=== PATIENT | male | born 1970 | race Caucasian/White ===

== ENCOUNTER 2018-04-29 02:06 | Inpatient (IN) | payer MEDICAID, OTHER ==
[~2018-04-29] VITALS: Ht 185.4 cm; Wt 89.0 kg
[2018-04-29] MEDS ORDERED: ONDANSETRON 2MG/ML, 2ML ONE (02:15)
[2018-04-29] MEDS ORDERED: SODIUM CHLORIDE 0.9% 1,000ML IVBOLUS ONE (02:30)
[2018-04-29] MEDS ORDERED: LIDOCAINE 1%, 10ML INFIL ONE (02:30)
[2018-04-29] MEDS ORDERED: DIPH,PERTUSS(ACELL),TET VAC/PF 0.5 ML IM-VACC ONE ×2 (02:30→07:59)
--- NOTE | 2018-04-29 02:35 | NUR ---
ASSUMED CARE FOR THIS PT. PT POSITIONED FOR COMFORT NAD IVF RUNNING VIA A WARMER ORDERED PT WITH BEAR HUGGER IN PLACE AND WARM BLANKETS GIVEN TO PT.
--- NOTE | 2018-04-29 02:35 | NUR ---
Pt bib ambulance with lac to L wrist--self inflicted. Bleeding controlled TEACHING PASTOR. No active bleeding when dressing removed. CMS intact to L hand. Per EMS, approx 400-500 cc blood noted on scene. Pt also has lac to bottom of chin. States he is unsure how he got this. + ETOH as well. EMS could only get bp 100/palp on scene. Unable to obtain IV TEACHING PASTOR. Pt received 4 mg Zofran PO TEACHING PASTOR. Just before arrival, bp 112/77 per EMS. Pt hypotensive upon arrival to ER. Pt is A&O. C/O severe jaw pain with mild swelling noted to L jaw. IV access obtained and fluid bolus started via fluid warmer. Pt rectal temp 96.3. Bear-hugger blanket in place as well. Report to Familia CASEY.
[2018-04-29] MEDS ORDERED: ONDANSETRON 2MG/ML, 2ML IVPush ONE (03:00)
[2018-04-29 03:01] LABS: MEAN CORPUSCULAR HEMOGLOBIN 31.1 pg (27.5-34.5); MEAN CORPUSCULAR HGB CONC 33.9 g/dL (33.2-36.2); MEAN CORPUSCULAR VOLUME 91.6 fL (81-97); MEAN PLATELET VOLUME 8.6 fL (7.4-10.4); PLATELET COUNT 442 x10^3/uL (130-400); RED BLOOD COUNT 4.96 x10^6/uL (4.38-5.82); RED CELL DISTRIBUTION WIDTH 13.4 % (9.4-14.8)
[2018-04-29 03:02] LABS: ACETAMINOPHEN 2 mcg/mL (10-30); ALANINE AMINOTRANSFERASE 18 U/L (12-78); ALBUMIN 3.2 g/dL (3.4-5.0); ANION GAP 18 mmol/L (5-15); CALCIUM 7.5 mg/dL (8.5-10.1); CHLORIDE 109 mmol/L (98-107); CREATININE 2.53 mg/dL (0.7-1.3)
[2018-04-29 03:04] LABS: ALKALINE PHOSPHATASE 65 U/L (45-117); BILIRUBIN,TOTAL 0.3 mg/dL (0.2-1.0); SALICYLATE LEVEL < 1.7 mg/dL (2.8-20.0); TOTAL PROTEIN 5.4 g/dL (6.4-8.2)
[2018-04-29 03:16] LABS: BASOPHILS # (AUTO) 0.05 x10^3/uL (0-0.1); BASOPHILS % (AUTO) 0 % (0-1); EOSINOPHILS # (AUTO) 0.02 x10^3/uL (0-0.4); EOSINOPHILS % (AUTO) 0 % (1-7); LYMPHOCYTES % (AUTO) 7 % (22-44); MD SCAN; MONOCYTES # (AUTO) 0.33 x10^3/uL (0.2-0.8); MONOCYTES % (AUTO) 1 % (2-9); NEUTROPHILS # (AUTO) 22.56 x10^3/uL (1.8-6.8); NEUTROPHILS % (AUTO) 91 % (42-75)
--- NOTE | 2018-04-29 03:30 | NUR ---
IFV RUNNING ORDERED AND AWAITING LAB AND CT RESULTS. PT REMAINS A/O X [address] IN [address]. PT WITH SITTER AT BEDSIDE AND IN NO DISTRESS AT THIS TIME.
--- NOTE | 2018-04-29 04:08 | NUR ---
PT TO CT SCAN.
[2018-04-29] MEDS ORDERED: VANCOMYCIN 1,700 MG in SODIUM CHLORIDE 0.9% 250 ML IV ONE (04:30)
[2018-04-29] MEDS ORDERED: VANCOMYCIN PER PHARMACY IV ONE (04:30)
[2018-04-29] MEDS ORDERED: PIPERACILLIN/TAZO/PMX 3.375GM 50 ML IVPB ONE (04:30)
[2018-04-29] MEDS ORDERED: PIPERACILLIN/TAZO/PMX 3.375GM 50 ML ONE (04:32)
--- NOTE | 2018-04-29 04:39 | NUR ---
ASSISTED IN PT CARE. ANTIBIOTICS INFUSING VIA PUMP AFTER BLOOD CULTURES X2 DRAWN.
--- NOTE | 2018-04-29 04:48 | NUR ---
LAC TO LEFT WRIST STARTED BLEEDING AND WAS RE DRESSED AND BLEEDING CONTROLED. SECOND IV WAS STARTED AND IV MEDS RUNNING ORDERED.
[2018-04-29] MEDS ORDERED: LIDOCAINE-MPF 1%, 5ML ONE (05:03)
[2018-04-29] MEDS ORDERED: BACITRACIN ZINC OINT 500U/GM, 0.9 GM ONE (05:31)
--- NOTE | 2018-04-29 05:43 | NUR ---
BOTH WRIST AND CHIN LAC REPAIRED BY PA. PT MEDICATED FOR PAIN.
[2018-04-29] MEDS ORDERED: MAALOX/HYOSCYAMINE/LIDOCAINE 45 ML BTL PO ONE (06:00)
[2018-04-29] MEDS ORDERED: morphine SULFATE 10 MG/ML, 1ML IVPush ONE (06:00)
--- NOTE | 2018-04-29 06:12 | NUR ---
SITTER REMAINS AT BEDSIDE IVF CONTINUE.
[2018-04-29 06:31] LABS: TROPONIN I < 0.015 ng/mL (0.000-0.045)
[2018-04-29] MEDS ORDERED: SODIUM CHLORIDE 0.9% 1,000 ML IV SCH ×2 (07:00→13:00)
[2018-04-29] MEDS ORDERED: SODIUM CHLORIDE 0.9% 1,000 ML IV ONE (07:07)
[2018-04-29] MEDS ORDERED: MORPHINE SULFATE 4 MG/ML, 1ML ONE ×4 (07:59→17:25)
[2018-04-29] MEDS ORDERED: hydrALAzine 20 MG/ML, 1ML IVPush PRN (08:00)
[2018-04-29] MEDS ORDERED: ACETAMINOPHEN 325 MG TABLET PO PRN (08:00)
[2018-04-29] MEDS ORDERED: BISACODYL 10 MG SUPP PR PRN (08:00)
[2018-04-29] MEDS: morphine SULFATE 10 MG/ML, 1ML IVPush PRN ×5 (08:24→22:18)
[2018-04-29] MEDS ORDERED: PROCHLORPERAZINE 5 MG/ML, 2ML IV PRN (08:30)
[2018-04-29 08:36] LABS: INTERNATIONAL NORMALIZED RATIO 1.15 (0.93-1.1); PROTHROMBIN TIME 12.1 Seconds (9.6-11.5)
[2018-04-29] MEDS: SODIUM CHLORIDE 0.9% 1,000 ML IV SCH ×3 (08:58→23:00)
[2018-04-29] MEDS ORDERED: FAMOTIDINE 20 MG/2 ML IVPush SCH (09:00)
--- NOTE | 2018-04-29 09:03 | NUR ---
BED BATH TO REMOVE REMAINING DRIED BLOOD, COMPLETE BED CHANGE. PT TOLLERATED WELL, JAW BRA ICE PACKS APPLIED AND PT NOW APPEARS SLEEPING RIGHT LATERAL POSITION, RESP EVEN NON-LABORED. MONITORS IN PLACE, SITTER AT BEDSIDE.
[2018-04-29 09:05] LABS: HEMOGLOBIN A1C 5.1 % (4.2-6.3)
[2018-04-29] MEDS: POTASSIUM CHLORIDE 20 MEQ, MAGNESIUM SULFATE 1 GM, THIAMINE 200 MG, FOLIC ACID 1 MG, MV... IV SCH (09:53)
[2018-04-29] MEDS ORDERED: NICOTINE 7 MG/24 HR PATCH.TD24 ONE (09:57)
[2018-04-29] MEDS ORDERED: FAMOTIDINE 20 MG/2 ML ONE (09:58)
[2018-04-29] MEDS: NICOTINE 7 MG/24 HR PATCH.TD24 TD SCH (09:59)
[2018-04-29 11:25] VITALS: BP 110/73
[2018-04-29 11:53] VITALS: BP 101/67
[2018-04-29 11:54] LABS: AMPHETAMINE SCREEN, URINE Negative (Negative); BARBITURATE SCREEN, URINE Negative (Negative); BENZODIAZEPINE SCREEN, URINE Negative (Negative); CANNABINOID SCREEN, URINE Negative (Negative); COCAINE SCREEN, URINE Negative (Negative); METHADONE SCREEN, URINE Negative (Negative); OPIATE SCREEN, URINE Positive (Negative)
[2018-04-29 12:00] LABS: MICROSCOPIC AUTO
[2018-04-29] MEDS ORDERED: MORPHINE SULFATE 4 MG/ML, 1ML IVPush ONE (12:00)
[2018-04-29 12:03] LABS: CULTURE INDICATED? NO
[2018-04-29 14:00] VITALS: BP 117/77
[2018-04-29 17:29] VITALS: BP 117/77
[2018-04-29 20:00] VITALS: BP 123/81
[2018-04-30 02:00] VITALS: BP 119/83
[2018-04-30 02:28] LABS: ALANINE AMINOTRANSFERASE 13 U/L (12-78); ALBUMIN 2.6 g/dL (3.4-5.0); ANION GAP 6 mmol/L (5-15); BASOPHILS # (AUTO) 0.09 x10^3/uL (0-0.1); BASOPHILS % (AUTO) 1 % (0-1); CALCIUM 7.3 mg/dL (8.5-10.1); CHLORIDE 111 mmol/L (98-107); CREATININE 0.91 mg/dL (0.7-1.3); EOSINOPHILS # (AUTO) 0.11 x10^3/uL (0-0.4); EOSINOPHILS % (AUTO) 1 % (1-7); LYMPHOCYTES # (AUTO) 1.85 x10^3/uL (1-3.4); LYMPHOCYTES % (AUTO) 21 % (22-44); MD NO; MEAN CORPUSCULAR HEMOGLOBIN 31.1 pg (27.5-34.5); MEAN CORPUSCULAR HGB CONC 34.5 g/dL (33.2-36.2); MEAN CORPUSCULAR VOLUME 90.2 fL (81-97); MEAN PLATELET VOLUME 8.1 fL (7.4-10.4); MONOCYTES # (AUTO) 0.62 x10^3/uL (0.2-0.8); MONOCYTES % (AUTO) 7 % (2-9); NEUTROPHILS # (AUTO) 6.13 x10^3/uL (1.8-6.8); NEUTROPHILS % (AUTO) 70 % (42-75); PLATELET COUNT 219 x10^3/uL (130-400); RED CELL DISTRIBUTION WIDTH 13.3 % (9.4-14.8)
[2018-04-30 02:31] LABS: ALKALINE PHOSPHATASE 53 U/L (45-117); BILIRUBIN,TOTAL 0.4 mg/dL (0.2-1.0); TOTAL PROTEIN 4.4 g/dL (6.4-8.2)
[2018-04-30] MEDS: morphine SULFATE 10 MG/ML, 1ML IVPush PRN ×6 (04:05→20:07)
[2018-04-30] MEDS: SODIUM CHLORIDE 0.9% 1,000 ML IV SCH (05:00)
[2018-04-30 07:45] VITALS: BP_SYST 112; BP_SYST 151; BP_DIAS 52; BP_DIAS 76
[2018-04-30] MEDS ORDERED: FAMOTIDINE 20 MG/2 ML IVPush SCH (09:00)
[2018-04-30] MEDS: NEUTRA PHOS K 250 MG TABLET PO SCH ×2 (09:40→20:07)
[2018-04-30] MEDS: POTASSIUM CHLORIDE 20 MEQ, MAGNESIUM SULFATE 1 GM, THIAMINE 200 MG, FOLIC ACID 1 MG, MV... IV SCH (09:40)
[2018-04-30] MEDS: NICOTINE 7 MG/24 HR PATCH.TD24 TD SCH (09:41)
[2018-04-30 13:20] VITALS: BP 104/69
[2018-04-30] MEDS: FAMOTIDINE 20 MG TABLET PO SCH (20:07)
[2018-04-30 20:17] VITALS: BP 129/84
[2018-04-30] MEDS: OXYcodone 5 MG/5 ML ORAL.SOL UDC PO PRN (22:16)
[2018-05-01 00:04] VITALS: BP 116/72
[2018-05-01] MEDS: morphine SULFATE 10 MG/ML, 1ML IVPush PRN ×5 (01:02→23:05)
[2018-05-01 06:03] LABS: BASOPHILS # (AUTO) 0.07 x10^3/uL (0-0.1); BASOPHILS % (AUTO) 1 % (0-1); EOSINOPHILS # (AUTO) 0.12 x10^3/uL (0-0.4); EOSINOPHILS % (AUTO) 2 % (1-7); LYMPHOCYTES # (AUTO) 1.49 x10^3/uL (1-3.4); LYMPHOCYTES % (AUTO) 19 % (22-44); MD NO; MEAN CORPUSCULAR HEMOGLOBIN 31.3 pg (27.5-34.5); MEAN CORPUSCULAR HGB CONC 34.7 g/dL (33.2-36.2); MEAN CORPUSCULAR VOLUME 90.3 fL (81-97); MEAN PLATELET VOLUME 8.4 fL (7.4-10.4); MONOCYTES # (AUTO) 0.55 x10^3/uL (0.2-0.8); MONOCYTES % (AUTO) 7 % (2-9); NEUTROPHILS # (AUTO) 5.59 x10^3/uL (1.8-6.8); NEUTROPHILS % (AUTO) 72 % (42-75); PLATELET COUNT 212 x10^3/uL (130-400); RED BLOOD COUNT 2.69 x10^6/uL (4.38-5.82); RED CELL DISTRIBUTION WIDTH 13.2 % (9.4-14.8)
[2018-05-01 06:13] LABS: ANION GAP 5 mmol/L (5-15); CHLORIDE 108 mmol/L (98-107)
[2018-05-01 06:14] LABS: CREATININE 0.85 mg/dL (0.7-1.3)
[2018-05-01] MEDS ORDERED: BALANCED SALT OPHTH IRRIG SOLN 18ML ONE (07:19)
[2018-05-01] MEDS ORDERED: OXYMETAZOLINE NASAL SPRAY 0.05%, 15ML ONE (07:19)
[2018-05-01] MEDS ORDERED: LIDOCAINE 1%-EPI 1:100K, 30ML ONE (07:19)
[2018-05-01] MEDS ORDERED: FENTANYL PF 250 MCG/5ML ONE (07:20)
[2018-05-01] MEDS ORDERED: MIDAZOLAM 1 MG/ML, 2ML ONE (07:20)
[2018-05-01] MEDS ORDERED: ROCURONIUM 10MG/ML,5ML ONE (07:22)
[2018-05-01] MEDS ORDERED: PROPOFOL 10 MG/ML, 20ML ONE (07:22)
[2018-05-01] MEDS ORDERED: CLINDAMYCIN 150 MG/ML, 6ML ONE (07:34)
[2018-05-01] MEDS ORDERED: ONDANSETRON 2MG/ML, 2ML ONE (07:34)
[2018-05-01] MEDS ORDERED: DEXAMETHASONE 4 MG/ML, 1ML ONE (07:34)
[2018-05-01 08:00] VITALS: BP 131/88
[2018-05-01] MEDS: NICOTINE 7 MG/24 HR PATCH.TD24 TD SCH (08:00)
[2018-05-01] MEDS ORDERED: FENTANYL PF 100 MCG/2ML ONE (08:13)
[2018-05-01] MEDS ORDERED: HYDROmorphone 2 MG/ML, 1ML ONE (08:13)
[2018-05-01] MEDS ORDERED: SUGAMMADEX 200 MG/2 ML IVPush ONE (08:19)
[2018-05-01] MEDS ORDERED: hydrALAzine 20 MG/ML, 1ML IV PRN (08:30)
[2018-05-01] MEDS ORDERED: PROMETHAZINE 25 MG/ML, 1ML IV PRN (08:30)
[2018-05-01] MEDS ORDERED: MEPERIDINE/PF 25MG/0.5ML IVPush PRN (08:30)
[2018-05-01] MEDS: POTASSIUM CHLORIDE 20 MEQ, MAGNESIUM SULFATE 1 GM, THIAMINE 200 MG, FOLIC ACID 1 MG, MV... IV SCH (08:30)
[2018-05-01] MEDS ORDERED: LORazepam 2 MG/ML, 1ML IVPush PRN (08:30)
[2018-05-01] MEDS ORDERED: FENTANYL PF 100 MCG/2ML IV PRN (08:30)
[2018-05-01] MEDS ORDERED: HALOPERIDOL 5 MG/ML IV PRN (08:30)
[2018-05-01] MEDS ORDERED: OXYcodone 5 MG/5 ML ORAL.SOL UDC PO PRN (08:30)
[2018-05-01] MEDS ORDERED: HYDROmorphone 2 MG/ML, 1ML IVPush PRN (08:30)
[2018-05-01] MEDS ORDERED: OXYcodone 5 MG/5 ML ORAL.SOL UDC ONE (08:54)
[2018-05-01] MEDS: FAMOTIDINE 20 MG TABLET PO SCH ×2 (09:00→19:45)
[2018-05-01] MEDS: NEUTRA PHOS K 250 MG TABLET PO SCH ×2 (09:00→19:45)
[2018-05-01] MEDS: OXYcodone 5 MG/5 ML ORAL.SOL UDC PO PRN ×2 (12:04→21:27)
[2018-05-01] MEDS: SODIUM CHLORIDE 0.9% 1,000 ML IV SCH (12:06)
[2018-05-01 14:00] VITALS: BP 122/75
[2018-05-01 19:44] VITALS: BP 135/65
[2018-05-02] MEDS: SODIUM CHLORIDE 0.9% 1,000 ML IV SCH (01:15)
[2018-05-02 02:13] VITALS: BP 117/80
[2018-05-02] MEDS: morphine SULFATE 10 MG/ML, 1ML IVPush PRN ×4 (03:54→20:26)
[2018-05-02 06:01] LABS: BASOPHILS # (AUTO) 0.04 x10^3/uL (0-0.1); BASOPHILS % (AUTO) 0 % (0-1); EOSINOPHILS # (AUTO) 0.01 x10^3/uL (0-0.4); EOSINOPHILS % (AUTO) 0 % (1-7); LYMPHOCYTES # (AUTO) 1.07 x10^3/uL (1-3.4); LYMPHOCYTES % (AUTO) 8 % (22-44); MD NO; MEAN CORPUSCULAR HEMOGLOBIN 31.7 pg (27.5-34.5); MEAN CORPUSCULAR HGB CONC 34.8 g/dL (33.2-36.2); MEAN CORPUSCULAR VOLUME 91.1 fL (81-97); MEAN PLATELET VOLUME 8.6 fL (7.4-10.4); MONOCYTES % (AUTO) 6 % (2-9); NEUTROPHILS # (AUTO) 11.35 x10^3/uL (1.8-6.8); NEUTROPHILS % (AUTO) 86 % (42-75); PLATELET COUNT 236 x10^3/uL (130-400); RED BLOOD COUNT 2.81 x10^6/uL (4.38-5.82); RED CELL DISTRIBUTION WIDTH 13.7 % (9.4-14.8)
[2018-05-02 06:07] LABS: ANION GAP 6 mmol/L (5-15); CALCIUM 8.2 mg/dL (8.5-10.1); CHLORIDE 105 mmol/L (98-107); CREATININE 0.85 mg/dL (0.7-1.3)
[2018-05-02 07:02] VITALS: BP 105/75
[2018-05-02] MEDS: NICOTINE 7 MG/24 HR PATCH.TD24 TD SCH (09:16)
[2018-05-02] MEDS: NEUTRA PHOS K 250 MG TABLET PO SCH (09:16)
[2018-05-02] MEDS: FAMOTIDINE 20 MG TABLET PO SCH ×2 (09:16→20:26)
[2018-05-02] MEDS: OXYcodone 5 MG/5 ML ORAL.SOL UDC PO PRN ×3 (11:23→23:38)
[2018-05-02 12:22] VITALS: BP 100/68
[2018-05-02] MEDS: ENOXAPARIN 40 MG/0.4 ML SQ SCH (14:30)
[2018-05-02 20:00] VITALS: BP 124/76
[2018-05-03 02:00] VITALS: BP 125/77
[2018-05-03] MEDS: morphine SULFATE 10 MG/ML, 1ML IVPush PRN ×4 (02:52→20:30)
[2018-05-03] MEDS: OXYcodone 5 MG/5 ML ORAL.SOL UDC PO PRN ×4 (05:59→23:17)
[2018-05-03 06:35] VITALS: BP 129/77
[2018-05-03] MEDS: FAMOTIDINE 20 MG TABLET PO SCH ×2 (08:43→20:30)
[2018-05-03] MEDS: NICOTINE 7 MG/24 HR PATCH.TD24 TD SCH (08:45)
[2018-05-03 12:22] VITALS: BP 114/75
[2018-05-03] MEDS: ENOXAPARIN 40 MG/0.4 ML SQ SCH (14:30)
[2018-05-03] MEDS: CIPROFLOXACIN/HYDROCORTISONE EAR SUSP 0.2-1%, 10ML LEFT EAR SCH ×2 (15:49→20:30)
[2018-05-03 20:00] VITALS: BP 110/76
[2018-05-03 20:28] VITALS: BP 114/63
[2018-05-03 23:15] VITALS: BP 114/75
[2018-05-04 02:00] VITALS: BP 108/70
[2018-05-04] MEDS: CIPROFLOXACIN/HYDROCORTISONE EAR SUSP 0.2-1%, 10ML LEFT EAR SCH ×4 (02:27→20:46)
[2018-05-04] MEDS: morphine SULFATE 10 MG/ML, 1ML IVPush PRN ×3 (03:24→18:40)
[2018-05-04 06:39] VITALS: BP 100/63
[2018-05-04] MEDS: NICOTINE 7 MG/24 HR PATCH.TD24 TD SCH (08:12)
[2018-05-04] MEDS: FAMOTIDINE 20 MG TABLET PO SCH ×2 (08:12→20:46)
[2018-05-04] MEDS: OXYcodone 5 MG/5 ML ORAL.SOL UDC PO PRN ×4 (08:14→23:13)
[2018-05-04] MEDS: DOCUSATE 100 MG CAPSULE PO PRN (08:17)
[2018-05-04 13:36] VITALS: BP 119/77
[2018-05-04] MEDS: ENOXAPARIN 40 MG/0.4 ML SQ SCH (14:23)
[2018-05-04] MEDS: POLYETHYLENE GLYCOL 17 GM PACKET PO PRN (17:35)
[2018-05-04 20:00] VITALS: BP 105/72
[2018-05-05 02:00] VITALS: BP 127/73
[2018-05-05] MEDS: CIPROFLOXACIN/HYDROCORTISONE EAR SUSP 0.2-1%, 10ML LEFT EAR SCH ×2 (02:46→07:57)
[2018-05-05] MEDS: morphine SULFATE 10 MG/ML, 1ML IVPush PRN ×2 (02:46→09:30)
[2018-05-05 05:58] LABS: BASOPHILS # (AUTO) 0.17 x10^3/uL (0-0.1); BASOPHILS % (AUTO) 2 % (0-1); EOSINOPHILS # (AUTO) 0.27 x10^3/uL (0-0.4); EOSINOPHILS % (AUTO) 3 % (1-7); LYMPHOCYTES # (AUTO) 2.02 x10^3/uL (1-3.4); LYMPHOCYTES % (AUTO) 21 % (22-44); MD NO; MEAN CORPUSCULAR HEMOGLOBIN 31.7 pg (27.5-34.5); MEAN CORPUSCULAR HGB CONC 34.9 g/dL (33.2-36.2); MEAN CORPUSCULAR VOLUME 90.8 fL (81-97); MEAN PLATELET VOLUME 8.9 fL (7.4-10.4); MONOCYTES % (AUTO) 10 % (2-9); NEUTROPHILS # (AUTO) 6.27 x10^3/uL (1.8-6.8); NEUTROPHILS % (AUTO) 65 % (42-75); PLATELET COUNT 347 x10^3/uL (130-400); RED BLOOD COUNT 3.34 x10^6/uL (4.38-5.82); RED CELL DISTRIBUTION WIDTH 14.4 % (9.4-14.8)
[2018-05-05 06:07] LABS: ANION GAP 7 mmol/L (5-15); CALCIUM 8.7 mg/dL (8.5-10.1); CHLORIDE 102 mmol/L (98-107)
[2018-05-05 06:08] LABS: CREATININE 1.04 mg/dL (0.7-1.3)
[2018-05-05] MEDS: OXYcodone 5 MG/5 ML ORAL.SOL UDC PO PRN ×3 (06:32→22:49)
[2018-05-05] MEDS: NICOTINE 7 MG/24 HR PATCH.TD24 TD SCH (07:57)
[2018-05-05] MEDS: FAMOTIDINE 20 MG TABLET PO SCH ×2 (07:57→20:07)
[2018-05-05 08:14] VITALS: BP 124/78
[2018-05-05] MEDS: HYDROcodone/APAP 5/325 TABLET PO PRN ×2 (11:57→20:07)
[2018-05-05 14:41] VITALS: BP 127/75
[2018-05-05] MEDS: ENOXAPARIN 40 MG/0.4 ML SQ SCH (14:42)
[2018-05-05] MEDS: CIPROFLOXACIN/HYDROCORTISONE EAR SUSP 0.2-1%, 10ML RIGHT EAR SCH ×2 (15:00→20:08)
[2018-05-05 18:53] VITALS: BP 115/75
[2018-05-06 02:42] VITALS: BP 90/58
[2018-05-06] MEDS: CIPROFLOXACIN/HYDROCORTISONE EAR SUSP 0.2-1%, 10ML RIGHT EAR SCH ×3 (03:00→21:19)
[2018-05-06] MEDS: HYDROcodone/APAP 5/325 TABLET PO PRN ×4 (03:00→22:10)
[2018-05-06 07:13] VITALS: BP 96/62
[2018-05-06] MEDS: DOCUSATE 100 MG CAPSULE PO PRN (10:13)
[2018-05-06] MEDS: IBUPROFEN 200 MG TABLET PO PRN ×2 (10:13→17:52)
[2018-05-06] MEDS: FAMOTIDINE 20 MG TABLET PO SCH ×2 (10:13→21:19)
[2018-05-06] MEDS: NICOTINE 7 MG/24 HR PATCH.TD24 TD SCH (10:13)
[2018-05-06 13:55] VITALS: BP 99/65
[2018-05-06] MEDS: ENOXAPARIN 40 MG/0.4 ML SQ SCH (16:43)
[2018-05-06 19:20] VITALS: BP 118/75
[2018-05-07 01:18] VITALS: BP 106/67
[2018-05-07] MEDS: CIPROFLOXACIN/HYDROCORTISONE EAR SUSP 0.2-1%, 10ML RIGHT EAR SCH ×3 (01:30→13:15)
[2018-05-07] MEDS: HYDROcodone/APAP 5/325 TABLET PO PRN ×3 (04:39→13:15)
[2018-05-07] MEDS: IBUPROFEN 200 MG TABLET PO PRN ×3 (04:39→16:49)
[2018-05-07 07:57] VITALS: BP 112/72
[2018-05-07] MEDS: DOCUSATE 100 MG CAPSULE PO PRN (09:04)
[2018-05-07] MEDS: FAMOTIDINE 20 MG TABLET PO SCH (09:04)
[2018-05-07] MEDS: POLYETHYLENE GLYCOL 17 GM PACKET PO PRN (09:05)
[2018-05-07] MEDS: NICOTINE 7 MG/24 HR PATCH.TD24 TD SCH (09:07)
[2018-05-07 13:13] VITALS: BP 114/69
[2018-05-07] MEDS ORDERED: IBUP-1484 PO (16:10)
[2018-05-07] MEDS ORDERED: ACET325T14 PO (16:10)
[2018-05-07] MEDS ORDERED: CIPR10DR RIGHT EAR (16:10)
[2018-05-07] MEDS ORDERED: NICO-485 TD (16:10)
== END 2018-05-07 18:11 | DRG 131 ==
LOC: ED 06:19 → EDIP 07:07 → 4EST 10:52
PROVIDERS: ADMIT Hospitalist; ATTEND Hospitalist
PROC: 0NSV04Z Reposition Left Mandible with Internal Fixation Device, Open Approach (ICD-10-PCS; principal; 2018-05-04)
DX: S02.652A Fracture of angle of left mandible, initial encounter for closed fracture (principal); D62 Acute posthemorrhagic anemia; E87.2 Acidosis; N17.9 Acute kidney failure, unspecified; E86.0 Dehydration; F10.120 Alcohol abuse with intoxication, uncomplicated; F17.210 Nicotine dependence, cigarettes, uncomplicated; F32.9 Major depressive disorder, single episode, unspecified; F43.10 Post-traumatic stress disorder, unspecified; H60.91 Unspecified otitis externa, right ear; H60.92 Unspecified otitis externa, left ear; I95.0 Idiopathic hypotension; K57.90 Diverticulosis of intestine, part unspecified, without perforation or abscess without bleeding; R73.9 Hyperglycemia, unspecified; S01.81XA Laceration without foreign body of other part of head, initial encounter; W06.XXXA Fall from bed, initial encounter; S61.512A Laceration without foreign body of left wrist, initial encounter; X78.9XXA Intentional self-harm by unspecified sharp object, initial encounter; Z91.5 Personal history of self-harm; Z81.8 Family history of other mental and behavioral disorders; Y93.89 Activity, other specified; Y92.89 Other specified places as the place of occurrence of the external cause
CPT/HCPCS: 36415; 84145; 99291; J3490; S0077; 70450; 70486; 71045; 80048; 80053; 80307; 80329; 81001; 82040; 82550; 83036; 83605; 83735; 84100; 84443; 84484; 85014; 85018; 85025; 85610; 86850; 86900; 87040; 90471; 90715; 93005; 96361; 96374; 96375; C1713; G0378; J1100; J2250; J2405; J2543; J2704; J3010; J3370; J3411; J3475; J3480; G0480; J2270; J7030; J7050

== ENCOUNTER 2018-05-07 13:06 | Inpatient (IN) | payer OTHER ==
[2018-05-06] MEDS: NICOTINE 7 MG/24 HR PATCH.TD24 TD SCH (21:00)
[~2018-05-07] VITALS: Ht 185.4 cm; Wt 92.0 kg
[2018-05-07] MEDS ORDERED: CIPR10DR RIGHT EAR (16:10)
[2018-05-07] MEDS ORDERED: IBUP-1484 PO (16:10)
[2018-05-07] MEDS ORDERED: NICO-485 TD (16:10)
[2018-05-07] MEDS ORDERED: ACET325T14 PO (16:10)
[2018-05-07] MEDS ORDERED: BISACODYL 10 MG SUPP PR PRN (17:00)
[2018-05-07] MEDS ORDERED: ACETAMINOPHEN 325 MG TABLET PO PRN ×2 (17:00→19:00)
[2018-05-07] MEDS ORDERED: POLYETHYLENE GLYCOL 17 GM PACKET PO PRN (17:00)
[2018-05-07] MEDS ORDERED: DOCUSATE 100 MG CAPSULE PO PRN ×2 (17:00→19:00)
[2018-05-07] MEDS ORDERED: ONDANSETRON ODT 4 MG PO PRN ×2 (17:00→19:00)
[2018-05-07] MEDS ORDERED: PLEASE ENTER HEIGHT AND WEIGHT MC SCH (17:30)
[2018-05-07 17:48] VITALS: BP 116/69
[2018-05-07] MEDS ORDERED: TRAZODONE 50MG TABLET PO PRN (19:00)
[2018-05-07] MEDS: IBUPROFEN 200 MG TABLET PO PRN (19:30)
[2018-05-07] MEDS: HYDROcodone/APAP 5/325 TABLET PO PRN (19:30)
[2018-05-07] MEDS: CIPROFLOXACIN/HYDROCORTISONE EAR SUSP 0.2-1%, 10ML RIGHT EAR SCH (19:31)
[2018-05-07 19:40] VITALS: BP 114/77
[2018-05-08] MEDS: CIPROFLOXACIN/HYDROCORTISONE EAR SUSP 0.2-1%, 10ML RIGHT EAR SCH ×4 (01:00→19:30)
[2018-05-08 06:29] LABS: HCT (SEDRATE) 31.1 % (39.2-51.8)
[2018-05-08] MEDS: IBUPROFEN 200 MG TABLET PO PRN ×2 (06:39→17:06)
[2018-05-08] MEDS: HYDROcodone/APAP 5/325 TABLET PO PRN ×3 (06:39→20:20)
[2018-05-08 07:03] LABS: CHOL/HDL RATIO 3.6; LDL/HDL RATIO 2.2 (0.5-3.0); T4 (THYROXINE) 4.5 mcg/dL (4.5-12.1)
[2018-05-08 07:31] VITALS: BP 103/66
[2018-05-08] MEDS: SENNA/DOCUSATE TABLET PO SCH (09:00)
[2018-05-08] MEDS: SERTRALINE 100MG TABLET PO SCH (12:18)
[2018-05-08] MEDS: NICOTINE 7 MG/24 HR PATCH.TD24 TD SCH (19:00)
[2018-05-08 19:18] VITALS: BP 109/64
[2018-05-08] MEDS ORDERED: QUETIAPINE 25MG TABLET PO SCH (21:00)
[2018-05-09] MEDS: CIPROFLOXACIN/HYDROCORTISONE EAR SUSP 0.2-1%, 10ML RIGHT EAR SCH ×4 (01:10→19:30)
[2018-05-09] MEDS: HYDROcodone/APAP 5/325 TABLET PO PRN ×4 (07:11→22:38)
[2018-05-09 07:32] VITALS: BP 110/73
[2018-05-09] MEDS: IBUPROFEN 200 MG TABLET PO PRN ×2 (08:38→20:14)
[2018-05-09] MEDS: SERTRALINE 100MG TABLET PO SCH (08:38)
[2018-05-09] MEDS: SENNA/DOCUSATE TABLET PO SCH (09:56)
[2018-05-09] MEDS: NICOTINE 7 MG/24 HR PATCH.TD24 TD SCH (19:30)
[2018-05-09 19:37] VITALS: BP 118/76
[2018-05-09] MEDS: QUETIAPINE 100MG TABLET PO SCH (20:18)
[2018-05-09] MEDS: TRAZODONE 50MG TABLET PO PRN (20:19)
[2018-05-10] MEDS: CIPROFLOXACIN/HYDROCORTISONE EAR SUSP 0.2-1%, 10ML RIGHT EAR SCH ×4 (01:00→19:08)
[2018-05-10] MEDS: HYDROcodone/APAP 5/325 TABLET PO PRN ×5 (03:46→21:01)
[2018-05-10 07:41] VITALS: BP 112/71
[2018-05-10] MEDS: SERTRALINE 100MG TABLET PO SCH (08:25)
[2018-05-10] MEDS: SENNA/DOCUSATE TABLET PO SCH (08:25)
[2018-05-10] MEDS: IBUPROFEN 200 MG TABLET PO PRN (14:09)
[2018-05-10 19:11] VITALS: BP 120/71
[2018-05-10] MEDS: NICOTINE 7 MG/24 HR PATCH.TD24 TD SCH (19:14)
[2018-05-10] MEDS: QUETIAPINE 100MG TABLET PO SCH (21:00)
[2018-05-11] MEDS: CIPROFLOXACIN/HYDROCORTISONE EAR SUSP 0.2-1%, 10ML RIGHT EAR SCH ×4 (01:00→19:05)
[2018-05-11] MEDS: HYDROcodone/APAP 5/325 TABLET PO PRN ×4 (07:30→20:23)
[2018-05-11 07:53] VITALS: BP 115/74
[2018-05-11] MEDS: SERTRALINE 100MG TABLET PO SCH (08:28)
[2018-05-11] MEDS: SENNA/DOCUSATE TABLET PO SCH (08:28)
[2018-05-11] MEDS: IBUPROFEN 200 MG TABLET PO PRN ×2 (08:35→17:45)
[2018-05-11] MEDS: NICOTINE 7 MG/24 HR PATCH.TD24 TD SCH (19:00)
[2018-05-11 19:58] VITALS: BP 126/87
[2018-05-11] MEDS: QUETIAPINE 100MG TABLET PO SCH (20:22)
[2018-05-12] MEDS: HYDROcodone/APAP 5/325 TABLET PO PRN ×5 (02:01→21:43)
[2018-05-12] MEDS: CIPROFLOXACIN/HYDROCORTISONE EAR SUSP 0.2-1%, 10ML RIGHT EAR SCH ×4 (02:01→20:20)
[2018-05-12] MEDS: IBUPROFEN 200 MG TABLET PO PRN ×2 (07:46→20:07)
[2018-05-12 08:41] VITALS: BP 142/88
[2018-05-12] MEDS: SENNA/DOCUSATE TABLET PO SCH (09:20)
[2018-05-12] MEDS: SERTRALINE 100MG TABLET PO SCH (09:20)
[2018-05-12 20:03] VITALS: BP 136/89
[2018-05-12] MEDS: NICOTINE 7 MG/24 HR PATCH.TD24 TD SCH (20:06)
[2018-05-12] MEDS: QUETIAPINE 100MG TABLET PO SCH (20:07)
[2018-05-12] MEDS: TRAZODONE 50MG TABLET PO PRN (21:44)
[2018-05-13] MEDS: CIPROFLOXACIN/HYDROCORTISONE EAR SUSP 0.2-1%, 10ML RIGHT EAR SCH ×4 (01:00→19:00)
[2018-05-13 07:15] VITALS: BP 128/82
[2018-05-13] MEDS: HYDROcodone/APAP 5/325 TABLET PO PRN ×4 (07:25→20:50)
[2018-05-13] MEDS: IBUPROFEN 200 MG TABLET PO PRN ×2 (08:07→16:47)
[2018-05-13] MEDS: SERTRALINE 100MG TABLET PO SCH (08:07)
[2018-05-13] MEDS: SENNA/DOCUSATE TABLET PO SCH (08:07)
[2018-05-13] MEDS: LAMOTRIGINE 25 MG TABLET PO SCH (08:07)
[2018-05-13] MEDS: NICOTINE 7 MG/24 HR PATCH.TD24 TD SCH (19:07)
[2018-05-13 19:45] VITALS: BP 108/73
[2018-05-13] MEDS: QUETIAPINE 100MG TABLET PO SCH (20:50)
[2018-05-14] MEDS: CIPROFLOXACIN/HYDROCORTISONE EAR SUSP 0.2-1%, 10ML RIGHT EAR SCH ×4 (01:00→18:27)
[2018-05-14 07:40] VITALS: BP 118/83
[2018-05-14] MEDS: LAMOTRIGINE 25 MG TABLET PO SCH (08:13)
[2018-05-14] MEDS: SENNA/DOCUSATE TABLET PO SCH (08:14)
[2018-05-14] MEDS: HYDROcodone/APAP 5/325 TABLET PO PRN ×4 (08:14→21:07)
[2018-05-14] MEDS: SERTRALINE 100MG TABLET PO SCH (08:14)
[2018-05-14] MEDS: IBUPROFEN 200 MG TABLET PO PRN (15:54)
[2018-05-14] MEDS: NICOTINE 7 MG/24 HR PATCH.TD24 TD SCH (18:27)
[2018-05-14 19:26] VITALS: BP 126/77
[2018-05-14] MEDS: TRAZODONE 50MG TABLET PO PRN (21:07)
[2018-05-14] MEDS: QUETIAPINE 100MG TABLET PO SCH (21:08)
[2018-05-15] MEDS: CIPROFLOXACIN/HYDROCORTISONE EAR SUSP 0.2-1%, 10ML RIGHT EAR SCH ×4 (01:00→19:00)
[2018-05-15 07:40] VITALS: BP 109/70
[2018-05-15] MEDS: HYDROcodone/APAP 5/325 TABLET PO PRN ×4 (08:13→20:17)
[2018-05-15] MEDS: LAMOTRIGINE 25 MG TABLET PO SCH (08:13)
[2018-05-15] MEDS: SENNA/DOCUSATE TABLET PO SCH (08:13)
[2018-05-15] MEDS: SERTRALINE 100MG TABLET PO SCH (08:13)
[2018-05-15] MEDS: IBUPROFEN 200 MG TABLET PO PRN ×2 (10:36→20:16)
[2018-05-15] MEDS: NICOTINE 7 MG/24 HR PATCH.TD24 TD SCH (19:27)
[2018-05-15 19:33] VITALS: BP 143/92
[2018-05-15] MEDS: QUETIAPINE 100MG TABLET PO SCH (20:06)
[2018-05-16] MEDS: CIPROFLOXACIN/HYDROCORTISONE EAR SUSP 0.2-1%, 10ML RIGHT EAR SCH ×3 (01:00→07:27)
[2018-05-16 07:49] VITALS: BP 117/79
[2018-05-16] MEDS: SERTRALINE 100MG TABLET PO SCH (08:16)
[2018-05-16] MEDS: LAMOTRIGINE 25 MG TABLET PO SCH (08:17)
[2018-05-16] MEDS: HYDROcodone/APAP 5/325 TABLET PO PRN (08:17)
[2018-05-16] MEDS: SENNA/DOCUSATE TABLET PO SCH (08:17)
[2018-05-16] MEDS ORDERED: LAMO25TA PO (17:12)
[2018-05-16] MEDS ORDERED: QUET100T PO (17:12)
[2018-05-16] MEDS ORDERED: SERT100T5 PO (17:12)
[2018-05-16] MEDS ORDERED: TRAZ50TA66 PO (17:12)
== END 2018-05-16 12:00 | disposition home or self-care (01) | DRG 885 ==
LOC: 3E 16:44
PROVIDERS: ADMIT Psychiatry & Neurology Psychosomatic Medicine; ATTEND Psychiatry & Neurology Psychosomatic Medicine
DX: F25.1 Schizoaffective disorder, depressive type (principal); E87.2 Acidosis; N17.9 Acute kidney failure, unspecified; R45.851 Suicidal ideations; F10.20 Alcohol dependence, uncomplicated; Y90.9 Presence of alcohol in blood, level not specified; F17.210 Nicotine dependence, cigarettes, uncomplicated; F31.30 Bipolar disorder, current episode depressed, mild or moderate severity, unspecified; F43.10 Post-traumatic stress disorder, unspecified; H60.91 Unspecified otitis externa, right ear; K57.90 Diverticulosis of intestine, part unspecified, without perforation or abscess without bleeding; Z79.899 Other long term (current) drug therapy; Z81.8 Family history of other mental and behavioral disorders; Z83.3 Family history of diabetes mellitus
CPT/HCPCS: 36415; 80061; 82140; 82607; 84436; 85651; 86592; 93005; 92523-GN

== ENCOUNTER 2018-05-16 18:44 | Emergency (ER) | payer SELFPAY ==
[~2018-05-16] VITALS: Ht 185.4 cm; Wt 100.0 kg
[~2018-05-16 18:44] MED LIST: ACET325T14 PO; CIPR10DR RIGHT EAR; IBUP-1484 PO; LAMO25TA PO; NICO-485 TD; QUET100T PO; SERT100T5 PO; TRAZ50TA66 PO
[2018-05-16 18:48] VITALS: BP 135/82
--- NOTE | 2018-05-16 18:56 | NUR ---
REPORT RECEIVED FROM CARMELA HOPKINS. PER KELLIE THE PT WAS BROUGHT IN BY [facility]. A BYSTANDER CALLED PD BECAUSE THE PT WAS "ACTING WEIRD" IN PUBLIC. AFTER PD WAS ON SCENE WITH THE PT A WHILE, EMS WAS CALLED. THE PT IS HOMELESS. HE CLAIMS SI. WHEN ASKED IF HE HAS A PLAN HE STATES "WHY DO I HAVE TO TELL YOU". PT WILL NOT SAY IF HE HAS HAD PRIOR ATTEMPTS. DENIES HI. REPORTS ETOH TODAY. PT TEARFUL HOWEVER NOT COOPERATING WITH THIS RN'S QUESTIONS. PT CALM JUST NOT COOPERATIVE. ALL BELONGINGS PLACED IN BAGS, PLACED IN LOCKER. 3 BELONGINGS BAGS AND ONE BACKPACK ([place]). SITTER OUTSIDE DOOR. URINE SAMPLE OBTAINED. PT PROVIDED WITH WARM BLANKET. AWAITING PROVIDER TO SEE PT. WILL CONTINUE TO MONITOR.
[2018-05-16] MEDS ORDERED: LORazepam 1MG TABLET PO ONE (19:30)
[2018-05-16 19:53] LABS: BASOPHILS # (AUTO) 0.06 x10^3/uL (0-0.1); BASOPHILS % (AUTO) 1 % (0-1); EOSINOPHILS # (AUTO) 0.07 x10^3/uL (0-0.4); EOSINOPHILS % (AUTO) 1 % (1-7); LYMPHOCYTES # (AUTO) 1.87 x10^3/uL (1-3.4); LYMPHOCYTES % (AUTO) 16 % (22-44); MD NO; MEAN CORPUSCULAR HEMOGLOBIN 30.5 pg (27.5-34.5); MEAN CORPUSCULAR HGB CONC 34.1 g/dL (33.2-36.2); MEAN CORPUSCULAR VOLUME 89.4 fL (81-97); MEAN PLATELET VOLUME 7.2 fL (7.4-10.4); MONOCYTES # (AUTO) 0.42 x10^3/uL (0.2-0.8); MONOCYTES % (AUTO) 4 % (2-9); NEUTROPHILS # (AUTO) 9.29 x10^3/uL (1.8-6.8); NEUTROPHILS % (AUTO) 79 % (42-75); PLATELET COUNT 501 x10^3/uL (130-400); RED CELL DISTRIBUTION WIDTH 13.8 % (9.4-14.8)
--- NOTE | 2018-05-16 20:00 | NUR ---
COMPENSATION SPECIALIST AT BEDSIDE EVALUATING PT
[2018-05-16 20:03] LABS: ALANINE AMINOTRANSFERASE 28 U/L (12-78); ALBUMIN 4.2 g/dL (3.4-5.0); ANION GAP 9 mmol/L (5-15); CALCIUM 8.7 mg/dL (8.5-10.1); CHLORIDE 107 mmol/L (98-107); CREATININE 0.92 mg/dL (0.7-1.3); SALICYLATE LEVEL 2.2 mg/dL (2.8-20.0)
[2018-05-16 20:06] LABS: ACETAMINOPHEN < 2 mcg/mL (10-30)
[2018-05-16 20:11] LABS: BILIRUBIN,TOTAL 0.2 mg/dL (0.2-1.0)
[2018-05-16 20:12] LABS: TOTAL PROTEIN 7.9 g/dL (6.4-8.2)
[2018-05-16 20:30] LABS: AMPHETAMINE SCREEN, URINE Negative (Negative); BARBITURATE SCREEN, URINE Negative (Negative); BENZODIAZEPINE SCREEN, URINE Negative (Negative); CANNABINOID SCREEN, URINE Negative (Negative); COCAINE SCREEN, URINE Negative (Negative); METHADONE SCREEN, URINE Negative (Negative); OPIATE SCREEN, URINE Positive (Negative)
[2018-05-16 20:30] LABS: ALKALINE PHOSPHATASE 77 U/L (45-117)
--- NOTE | 2018-05-16 20:51 | NUR ---
PT SEEN WALKING OUT OF ER
== END 2018-05-16 20:53 | disposition left against medical advice (07) ==
LOC: ED 20:47
DX: F33.9 Major depressive disorder, recurrent, unspecified (principal); F10.10 Alcohol abuse, uncomplicated; I95.9 Hypotension, unspecified; R45.851 Suicidal ideations
CPT/HCPCS: 36415; 80053; 80307; 80329; 85025; 93005; 99284; G0480

== ENCOUNTER 2018-05-16 21:54 | Emergency (ER) | payer SELFPAY ==
[~2018-05-16] VITALS: Ht 188 cm; Wt 100.0 kg
--- NOTE | 2018-05-16 22:07 | NUR ---
COST ENGINEER AWARE THAT THIS PT. UNCOOPERATIVE WITH LEAVING TRIAGE ROOM. WHILE PT. WAS IN LOBBY BEFORE CHECKING IN THIS RN/ GRACE RAMOS, AND SECURITY HAD PT. TAKE OUT WALLET PT. WOULD NOT TELL US HIS NAME. NO ID FOUND; A CREDIT CARD WAS USED FOR PT. NAME AND PT. DID TELL US HIS BIRTHDAY. PT. NOW UPSET THAT HE CAN'T FIND HIS ID IN HIS WALLET. PT. MOVED FROM TRIAGE BY EDTA AND COST ENGINEERZINA TO ROOM 35.
--- NOTE | 2018-05-16 22:23 | NUR ---
MELCHOR BUTTERFIELD BS FOR EXAM. PT STATES "I WANT TO KILL MYSELF" "I'VE GOT LOTS OF IDEAS" "EITHER WRIST OR..." "I WANT TO BE DONE" PT HOMELESS & CURRENTLY UNEMPLOYED. PT TEARFUL, ROCKING ON SIDE OF BED. STATES "I'M SUPPOSED TO BE ON A LOT OF MEDICINE BUT I DON'T HAVE INSURANCE. STATES HE STOPPED MEDS ABOUT 4 MONTHS AGO. STATES HE TAKES: LOMOTRIGENE - NEVER FILLED, WELLBUTRIN, TRAMADOL - CHRONIC NECK PAIN, SEROQUEL - NIGHTMARES & HALLUCINATIONS "AND I HEAR VOICES". DRANK ETOH EARLIER TODAY. LAST METH USE 2 MOS AGO. SUPERFICIAL SCRATCHES TO LT INNER WRIST.
[2018-05-16 22:56] LABS: BASOPHILS # (AUTO) 0.05 x10^3/uL (0-0.1); BASOPHILS % (AUTO) 1 % (0-1); EOSINOPHILS # (AUTO) 0.07 x10^3/uL (0-0.4); EOSINOPHILS % (AUTO) 1 % (1-7); LYMPHOCYTES # (AUTO) 1.76 x10^3/uL (1-3.4); LYMPHOCYTES % (AUTO) 18 % (22-44); MD NO; MEAN CORPUSCULAR HEMOGLOBIN 29.4 pg (27.5-34.5); MEAN CORPUSCULAR HGB CONC 33.1 g/dL (33.2-36.2); MEAN CORPUSCULAR VOLUME 88.7 fL (81-97); MEAN PLATELET VOLUME 7.7 fL (7.4-10.4); MONOCYTES # (AUTO) 0.59 x10^3/uL (0.2-0.8); MONOCYTES % (AUTO) 6 % (2-9); NEUTROPHILS # (AUTO) 7.61 x10^3/uL (1.8-6.8); NEUTROPHILS % (AUTO) 76 % (42-75); PLATELET COUNT 491 x10^3/uL (130-400); RED BLOOD COUNT 4.09 x10^6/uL (4.38-5.82); RED CELL DISTRIBUTION WIDTH 13.7 % (9.4-14.8)
[2018-05-16 23:08] LABS: ALBUMIN 4.1 g/dL (3.4-5.0); ANION GAP 8 mmol/L (5-15); CALCIUM 8.4 mg/dL (8.5-10.1); CHLORIDE 107 mmol/L (98-107); CREATININE 0.93 mg/dL (0.7-1.3); SALICYLATE LEVEL 2.1 mg/dL (2.8-20.0)
[2018-05-16 23:16] LABS: ACETAMINOPHEN < 2 mcg/mL (10-30)
--- NOTE | 2018-05-16 23:26 | NUR ---
received report from Briana. pt ambulated to , back to [facility] awake, calm & comfortable, responds approp to staff, NAD, comfort measures provided, call light within reach, will continue to monitor frequently.
--- NOTE | 2018-05-17 | NUR ---
pt laying on gurney mostly sleeping, responds approp to staff, NAD, comfort measures provided, call light within reach, will continue to monitor frequently.
--- NOTE | 2018-05-17 00:22 | NUR ---
report given to Juan Francisco
--- NOTE | 2018-05-17 00:23 | NUR ---
received report from CARMELA Potter. patient sleeping. respiration unlabored.
--- NOTE | 2018-05-17 02:26 | NUR ---
patient awake and went to bathroom.
--- NOTE | 2018-05-17 03:07 | NUR ---
BREAK RN: PT APPEARS TO BE SLEEPING IN ROOM, BILATERAL CHEST RISE NOTED.
--- NOTE | 2018-05-17 04:37 | NUR ---
recheck breathalyzer 0.15 @ [id number]
--- NOTE | 2018-05-17 04:45 | NUR ---
patient moved to RM 41.
--- NOTE | 2018-05-17 04:49 | NUR ---
RECEIVED REPORT FROM CARMELA IZAGUIRRE TO ASSUME PT. CARE AT THIS TIME. ROOM SECURED. PT. IN GOWN. ALL SAFETY MEASURES OBSERVED.
--- NOTE | 2018-05-17 05:41 | NUR ---
PT. RESTING ON GURNEY WITH NADN. EYES CLOSED. EVEN CHEST RISE/FALL VISIBLE.
--- NOTE | 2018-05-17 06:03 | NUR ---
PT. PROVIDED WITH PILLOW PER REQUEST. PT. CONTINUES RESTING ON GURNEY. AWAITING FOR PT. TO BE LEGALLY SOBER THEN PT. TO HAVE TELEPSYC EVAL DONE. PT. DENIES NEEDS AT THIS TIME. NADN. ROOM REMAINS SECURED.
--- NOTE | 2018-05-17 07:13 | NUR ---
ASSUMED CARE FROM CARMELA MARTIN. PATIENT IN BED AND WAKING UP. WILL GET URINE ON PATIENT AND DO BREATHYLZER/VITALS TO ASSESS PATIENT. IN BED. SITTER OUTSIDE.
--- NOTE | 2018-05-17 07:39 | NUR ---
ASSUMED CARE FROM Herlinda, PATIENT IN BED. GOT URINE ON PATIENT AND LABELED IN HIS PRESENCE AND SENT TO LAB. PATIENT VSS. STATES HAD MANDIBLE SURGERY LAST WEEK. DENIES PAIN. SLEEPING AND COOPERATIVE. PATIENT STATES HE HAS BEEN DEPRESSED "FOREVER" AND HE IS JUST "FINALLY DONE AND DOESN'T WANT TO LIVE ANYMORE". sTATE METHOD IS CUTTING HIMSELF. LISTENED. AIDET. EXPLAINED I WILL GET HIM BREAKFAST SOON. PAIN ADDRESSED AND PATIENT STATES COMFORTABLE.
--- NOTE | 2018-05-17 07:45 | NUR ---
WHEN UTOX BACK WILL ALERT MD THAT PATIENT READY FOR MEDICAL EXAM
[2018-05-17 07:58] LABS: AMPHETAMINE SCREEN, URINE Negative (Negative); BARBITURATE SCREEN, URINE Negative (Negative); BENZODIAZEPINE SCREEN, URINE Negative (Negative); CANNABINOID SCREEN, URINE Negative (Negative); COCAINE SCREEN, URINE Negative (Negative); METHADONE SCREEN, URINE Negative (Negative); OPIATE SCREEN, URINE Positive (Negative)
--- NOTE | 2018-05-17 08:57 | NUR ---
TELEPSYCH INITIATED, AND PATIENT AWAITING CALL. SLEEPING. DIDN'T YET EAT BREAKFAST. AWAKES EASILY BUT THEN QUICKLY BACK TO SLEEP
[2018-05-17 11:20] VITALS: BP 110/78
--- NOTE | 2018-05-17 11:38 | NUR ---
PATIENT WAS DISCHARGED AND CLEARED. PATIENT D/C TEACHING REVIEWED DIRECTED BY MD AND PATIENT LEFT WALKING.
== END 2018-05-17 11:38 | disposition home or self-care (01) ==
LOC: ED 05-17 03:11
DX: F32.9 Major depressive disorder, single episode, unspecified (principal); R45.851 Suicidal ideations; F17.200 Nicotine dependence, unspecified, uncomplicated
CPT/HCPCS: 36415; 80048; 80307; 80329; 82040; 85025; 99284; G0480